=== PATIENT | male | born 1945 | race Caucasian/White ===

== ENCOUNTER 2016-07-12 10:24 | Emergency (ER) | payer OTHER, MEDICARE ==
[~2016-07-12] VITALS: Ht 177.8 cm; Wt 117.9 kg
--- NOTE | ~2016-07-12 | EKG ---
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
--- NOTE | ~2016-07-12 | EKG ---
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1945 Requested By: Maulik Sherwood Order Number: [id number] MD: Po Britton Measurements Intervals [place] Rate: 63 P: 81 [place]: 163 QRS: 182 QRSD: 170 T: 57 QT: 483 QTc: 495 Interpretive Statements Atrial-sensed ventricular-paced complexes No further analysis attempted due to paced rhythm No previous ECG available for comparison Electronically Signed On 07-12-2016 12:51:59 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
[2016-07-12 10:40] VITALS: BP 104/53
[2016-07-12 10:59] LABS: HEMATOCRIT 35.5 % (42.0-52.0); HEMOGLOBIN 11.6 gm/dL (14.0-18.0); MCH 31.5 pg (26.0-34.0); MCHC 32.8 % (28.0-37.0); MCV 96.1 fL (80.0-100.0); PLATELET COUNT 196 thou/uL (150-400); RDW 15.5 % (10.5-14.5); WBC 9.1 thou/uL (4.0-11.0)
[2016-07-12 11:00] LABS: MANUAL DIFF YES
[2016-07-12] MEDS ORDERED: ASPIRIN325 PO (11:02)
[2016-07-12] MEDS ORDERED: ALLOPURINOL 30300 M2 PO (11:02)
[2016-07-12] MEDS ORDERED: LANOXIN 0.120.125 M1 PO (11:02)
[2016-07-12] MEDS ORDERED: FUROSEMIDE 40 M40 M1 PO (11:02)
[2016-07-12] MEDS ORDERED: LEVOTHYROXIN0.175 MG PO (11:03)
[2016-07-12] MEDS ORDERED: AMARYL2 MG PO (11:03)
[2016-07-12 11:04] LABS: CREATININE 1.7 mg/dL (0.6-1.3); POTASSIUM 3.7 mmol/L (3.5-5.1)
[2016-07-12] MEDS ORDERED: METOLAZONE 2.52.5 M1 PO (11:04)
[2016-07-12] MEDS ORDERED: PAROXETINE HCL20 MG PO (11:04)
[2016-07-12] MEDS ORDERED: LOPRESSOR50 PO (11:04)
[2016-07-12] MEDS ORDERED: LISINOPRIL20 MG PO (11:04)
[2016-07-12] MEDS ORDERED: VERAPAMIL E.R240 M1 PO (11:05)
[2016-07-12] MEDS ORDERED: NITROSTAT0.4 M1 SL (11:05)
[2016-07-12 11:12] LABS: PROTIME 10.5 Seconds (9.3-11.4)
[2016-07-12 11:39] LABS: ABSOLUTE NEUTROPHILS 7.3 thou/uL (1.4-8.2); TOTAL CELL COUNT 100
[2016-07-12 11:44] LABS: URINE BLOOD TRACE (Negative); URINE COLOR YELLOW; URINE GLUCOSE-RANDOM* NEGATIVE (Negative); URINE KETONES NEGATIVE (Negative); URINE NITRITE NEGATIVE (Negative); URINE PROTEIN (DIPSTICK) 1+ (Negative); URINE SPECIFIC GRAVITY >= 1.030 (1.003-1.035)
[2016-07-12 11:48] LABS: URINE BILIRUBIN NEGATIVE (Negative)
[2016-07-12 11:51] LABS: SQUAMOUS None Seen /LPF (0-3); URINE RBC 0-2 Rare /HPF (0-2); URINE WBC 0-5 Rare /HPF (0-5)
[2016-07-12 11:52] LABS: CASTS None Seen /LPF (None Seen); CRYSTALS None Seen /LPF (None Seen)
[2016-07-12 12:55] VITALS: BP 142/64
[2016-08-24] MEDS ORDERED: EFFIENT10 MG PO (07:55)
[2016-08-30] MEDS ORDERED: CENTRUM SILVER1 EAC4 PO (08:40)
[2016-08-30] MEDS ORDERED: VITAMIN D1000 UNI1 PO (08:41)
[2016-08-30] MEDS ORDERED: IRON325 PO (08:41)
[2016-08-30] MEDS ORDERED: COQ-10100 MG PO (08:41)
[2016-08-30] MEDS ORDERED: VITAMIN B-12500 MCG PO (08:41)
[2016-08-30] MEDS ORDERED: MORPHINE SULFAT15 M4 PO (09:46)
[2016-09-20] MEDS ORDERED: MORPHINE SULFAT15 M4 PO (10:16)
== END 2016-07-12 12:56 | disposition home or self-care (01) ==
LOC: ER 10:24 → EROBS 11:53
PROVIDERS: Emergency Medicine
DX: R53.1 Weakness (principal); Z88.0 Allergy status to penicillin; Z88.5 Allergy status to narcotic agent; Z88.8 Allergy status to other drugs, medicaments and biological substances

== ENCOUNTER 2016-10-29 14:32 | Emergency (ER) | payer OTHER, MEDICARE ==
[~2016-10-29] VITALS: Ht 175.3 cm; Wt 113.4 kg
[~2016-10-29 14:32] MED LIST: ALLOPURINOL 30300 M2 PO; AMARYL2 MG PO; ASPIRIN325 PO; CENTRUM SILVER1 EAC4 PO; COQ-10100 MG PO; EFFIENT10 MG PO; FUROSEMIDE 40 M40 M1 PO; IRON325 PO; LANOXIN 0.120.125 M1 PO; LEVOTHYROXIN0.175 MG PO; LISINOPRIL20 MG PO; LOPRESSOR50 PO; METOLAZONE 2.52.5 M1 PO; MORPHINE SULFAT15 M4 PO; NITROSTAT0.4 M1 SL; PAROXETINE HCL20 MG PO; VERAPAMIL E.R240 M1 PO; VITAMIN B-12500 MCG PO; VITAMIN D1000 UNI1 PO
[2016-10-29] MEDS ORDERED: SENOKOT-S1 TA1 PO (16:48)
[2016-10-29] MEDS ORDERED: MS CONTIN15 MG PO (17:07)
== END 2016-10-29 17:22 | disposition home or self-care (01) ==
LOC: ER 14:32
DX: S42.201A Unspecified fracture of upper end of right humerus, initial encounter for closed fracture (principal); S20.212A Contusion of left front wall of thorax, initial encounter; S00.93XA Contusion of unspecified part of head, initial encounter; I25.10 Atherosclerotic heart disease of native coronary artery without angina pectoris; F32.9 Major depressive disorder, single episode, unspecified; M10.9 Gout, unspecified; Z85.72 Personal history of non-Hodgkin lymphomas; Z95.0 Presence of cardiac pacemaker; Z85.89 Personal history of malignant neoplasm of other organs and systems; Z88.5 Allergy status to narcotic agent; Z88.8 Allergy status to other drugs, medicaments and biological substances; Z88.0 Allergy status to penicillin; W01.0XXA Fall on same level from slipping, tripping and stumbling without subsequent striking against object, initial encounter; Y93.01 Activity, walking, marching and hiking; Y92.090 Kitchen in other non-institutional residence as the place of occurrence of the external cause; Y99.8 Other external cause status

== ENCOUNTER → 2018-12-16 | Outpatient (CLI) | payer OTHER, MEDICARE ==
[~2018-12-16] MED LIST changes: +MS CONTIN15 MG PO; +SENOKOT-S1 TA1 PO
== END ==
LOC: CAT 13:12
DX: M51.36 Other intervertebral disc degeneration, lumbar region (principal); M48.061 Spinal stenosis, lumbar region without neurogenic claudication

== ENCOUNTER → 2018-12-19 | Outpatient (CLI) | payer OTHER, MEDICARE ==
[2018-12-19 09:26] LABS: HEMATOCRIT 39.2 % (42.0-52.0); HEMOGLOBIN 12.7 gm/dL (14.0-18.0); MCH 31.9 pg (26.0-34.0); MCHC 32.5 g/dL (28.0-37.0); MCV 98.2 fL (80.0-100.0); RBC 3.99 mil/uL (4.50-6.00); WBC 6.9 thou/uL (4.0-11.0)
[2018-12-19 09:34] LABS: CALCIUM 9.4 mg/dL (8.5-10.1); CREATININE 1.4 mg/dL (0.7-1.3); POTASSIUM 4.1 mmol/L (3.5-5.1)
== END ==
LOC: CAT 08:54
PROVIDERS: Nurse Practitioner
DX: K80.80 Other cholelithiasis without obstruction (principal); J98.4 Other disorders of lung; N28.1 Cyst of kidney, acquired

== ENCOUNTER → 2020-11-20 | Emergency (ER) | payer OTHER, MEDICARE ==
[~2020-11-20] VITALS: Ht 177.8 cm; Wt 112.5 kg
[2020-11-20 21:45] VITALS: BP 118/66
== END ==
LOC: ER 14:34
DX: F43.9 Reaction to severe stress, unspecified (principal); R06.00 Dyspnea, unspecified; R45.6 Violent behavior; R07.0 Pain in throat; I25.10 Atherosclerotic heart disease of native coronary artery without angina pectoris; Z95.0 Presence of cardiac pacemaker; F32.9 Major depressive disorder, single episode, unspecified; Z85.72 Personal history of non-Hodgkin lymphomas; Z79.899 Other long term (current) drug therapy; Z79.82 Long term (current) use of aspirin; Z88.8 Allergy status to other drugs, medicaments and biological substances; Z88.5 Allergy status to narcotic agent; Z88.6 Allergy status to analgesic agent; Z88.0 Allergy status to penicillin